=== PATIENT | male | born 2005 | race Caucasian/White ===

== ENCOUNTER 2025-09-04 02:18 | Inpatient (IN) | payer OTHER, SELFPAY ==
[2025-09-04 02:39] VITALS: BP 130/86
[2025-09-04 02:40] VITALS: BMI 30.6
--- NOTE | 2025-09-04 02:50 | PTCARENOTE ---
Received patient as a direct admit @0215. Pt transferred from [facility] with concern for left ankle infection. Pt ambulated to room with boot on left ankle. AAOx3. VSS. No c/o pain. Left ankle noted to have moderate edema with erythema.
Family is at bedside. Plan of care discussed. Call aragon within reach. Care ongoing.
--- NOTE | 2025-09-04 03:10 | HPS.HSE ---
Addendum entered and electronically signed by José Luis Orellana, DO 09/04/25 03:20:
[facility] Data:
WBC = 11.3
ESR = 16
CRP = 78.2
Lactate = 1.4
X-Ray L Ankle: Soft tissue swelling and questionable tibiotalar effusion.
CT Ankle: Post-op Changes. No fluid, effusion, etc.
Strep A: Negative
Blood Cultures x 2 drawn
Original Note:
Family Physician
-
Family Physician: PHYSICIAN PRIVATE
Chief Complaint
-
Fever
History of Present Illness
Patient is a 19y M with PMH significant for asthma / allergies who presents to from [facility] for evaluation of fever. Patient states that he developed fever with intermittent chills, malaise on 09/01. His symptoms have persisted /
progressed prompting him to present to Urgent Care this AM for evaluation. He tested negative for influenza / COVID there and was referred to local ED. At the ED there was concern for possible L ankle infection. Patient had labs, x-rays and CT
scan performed.
Patient reports some discomfort in the L ankle - but no new / worsening pain, etc.
He had surgery here with Dr. Coleman on 07/12 for ORIF / reconstruction of the L ankle. Patient is currently in a walking boot.
There is mild redness at the surgical site on lateral ankle which patient states is not changed.
There is some redness / swelling over the medial malleolus which patient states is new.
Medical History
Past Medical History
Past Medical History: Reports Other
Additional Past Medical History:
Allergic Asthma
Past Surgical History: Reports Other
Additional Past Surgical History:
Left Ankle ORIF / Reconstruction (07/12)
Left Lower Leg Surgery
Appendectomy
Social History
Tobacco: Non-smoker
Alcohol: Occasional
Drug: None
Family History
Family History: Not pertinent
Allergies / Home Medications
Allergies reflects when Allergies were last updated in [employer].
Home Medications with original date entered in [employer]
Allergy/Medication List:
Allergies
Allergy/AdvReac Type Severity Reaction Status Date / Time
No Known Allergies Allergy Verified 09/04/25 02:31
Home Medications
montelukast 10 mg tablet 10 mg PO DAILY 09/04/25
Review of Systems
-
History Source: Patient
A 12 point ROS was completed and negative except as noted: Yes
Constitutional: Reports Fever, Fatigue and Chills
EENT: Denies Sore Throat
Respiratory: Denies Cough or Trouble Breathing
Cardiac: Denies Chest Pain or Palpitations
Abdomen/GI: Denies Abdominal Pain, Nausea, Vomiting or Diarrhea
: Denies Dysuria, Frequency or Flank Pain
Musculoskeletal: Reports Joint Pain; Denies Joint Swelling or Edema
Neurological: Denies Dizzy or Headache
Psych: Denies Depression or Anxiety
Physical Exam
Vital Signs
Vital Signs
Temp Pulse Resp BP Pulse Ox
99.3 F 106 18 130/86 98
09/04/25 02:39 09/04/25 02:39 09/04/25 02:39 09/04/25 02:39 09/04/25 02:39
Physical Exam
General: Other (19y M in no distress.)
HEENT: Moist mucous membranes and PERRLA
Respiratory: Clear; No Wheezes, Rales or Rhonchi
Cardiac: S1/S2 and Regular Rhythm; No Murmur
GI: Soft, Non Tender, Non Distended and Normal Bowel Sounds
Musculoskeletal: No Clubbing, No Cyanosis and Other (L ankle with mild edema. Erythema medial and lateral malleolus, mild localized tenderness. Lateral ankle with incision, healing well - no bleeding / discharge. ROM without significant pain.)
Neuro: AO x 3 and Nonfocal/grossly intact
Impression/Plan
-
A/P: Patient is a 19y M s//p L ankle surgery on 07/12 who presents to from [facility] for evaluation of fever.
Fever
Left Ankle Erythema
s/p ORIF L Ankle 07/12
- Admit for further evaluation and treatment.
- Data from [facility] reviewed (see above).
- CT without significant fluid collection, etc at ankle - post-op changes.
- Received initial doses of daptomycin and cefepime at outside hospital.
- Would hold further abx for now pending joint aspiration / culture-guided therapy.
- Ortho consulted for recommendations.
- Follow fever curve and monitor for any other new / focal symptoms, etc.
- NWB to L foot for now pending Ortho eval.
- COVID / flu reportedly negative at Urgent care. Strep A negative at [facility] ED.
Allergic Asthma
- No acute exacerbation.
- Continue Singulair.
DVT Prophylaxis: Lovenox
Code Status: Full
[2025-09-04] MEDS: LR 1000 IV (03:48)
[2025-09-04] MEDS: FLUSH (NSS) 1 FLUSH IV (03:49)
[2025-09-04 07:00] VITALS: BP 142/79
--- NOTE | 2025-09-04 07:40 | W.PN.UPDATE ---
Update Note
Progress Note Update
Patient seen and evaluated bedside. Chart was reviewed.
Patient 19-year-old male now about 7 weeks status post open reduction term fixation left lateral malleolus fracture with associated syndesmotic repair presented to an outside hospital with redness reported fever chills. Ultimately was transferred
here from outside hospital for further workup.
On clinical exam has some mild erythema and associated warmth over medial lateral malleolus. Minimal tenderness palpation mostly over medial malleolus. Painless active ankle dorsi plantarflexion. No palpable fluctuance or significant reproducible
pain with motion of ankle.
Outside imaging reports of plain film x-rays left ankle as well as CT scan ankle with and without contrast not concerning for any associated with collection. There was questionable tibiotalar fusion noted on 1 report. Persistent fracture lines on
CT scan imaging
19-year-old male 7 weeks status post open reduction term fixation left ankle fracture with cellulitis. Will plan to reach out to IR to see if ultrasound study can be performed to evaluate for associated tibiotalar effusion potentially perform
aspiration. Would like to visualize imaging myself but would have concerns about removal of hardware at this point. I will plan to reach out to infectious disease to discuss possibility of suppressive antibiotics. This was discussed in detail
with the primary team.
Formal consult to follow
[2025-09-04 08:34] LABS: Hematocrit 39.9 % (39.0-52.0); Hemoglobin 13.7 g/dL (13.0-18.0); Mean Corp Hgb Conc. 34.3 g/dL (33.0-37.0); Mean Corpuscular Volume 86.4 fL (80.0-94.0); Platelet Count 249 10^3/uL (130-400); Red Cell Dist. Width 12.7 % (11.5-14.5)
[2025-09-04 08:58] LABS: Blood Urea Nitrogen 11 mg/dl (9-20); Calcium 10.1 mg/dl (8.4-10.2); Carbon Dioxide 26 mmol/L (22-30); Chloride 101 mmol/L (98-107); Estimated Creatinine Clearance > 125 ml/min; Glucose 98 mg/dl (70-99); Potassium 4.4 mmol/L (3.5-5.1); Sodium 137 mmol/L (135-145); eGFR > 60.00
--- NOTE | 2025-09-04 09:28 | W.PN.HOSP.TC ---
Today's Communication/Plan
-
see PN
Assessment / Plan
Assessment / Plan
19yo M with PMHx of mild intermittent asthma, Hx of L ankle Fx s/p ORIF about 7 weeks before admisison transferred to since his surgery doen here) for 2 days of worsening redness on L ankle and fevers. CT from [facility] reviewed by Ortho and no
concerning fluid collection seen but questionable tibiotalar effusion. PAtient had similar episode of redness, treated as cellulitis with Abx few weeks after the surgery
No urinary, respiratory or GI symptoms reported
A/P:
#LE cellulitis vs infectious arthritis (less likely)
patient non-toxic, follow additional studies off Abx pending ID consult
Ortho follows: plan for IRAD guided attempt to aspirate tibiotalar effusion
follow CBC, Bcx
CRP in outside hospital elevated to > 70
#Tachycardia
TSH done in outside hospital WNL
DVT ppx Lovenox
Full code
I have spent at least 51min reviewing chart, test results, communication with consultants, family bedside and providing direct patient care
Anticipated Discharge: > 48 hours
Subjective/Interval History
-
Date of Service: September 04, 2025
Objective Data
-
Labs:
Laboratory Results
09/04/25
08:11
WBC 9.6
Hgb 13.7
Hct 39.9
Plt Count 249
Sodium 137
Potassium 4.4
Chloride 101
Carbon Dioxide 26
BUN 11
Creatinine 0.8
Glucose 98
Calcium 10.1
Vital Signs:
Vital Signs
Temp Pulse Resp BP Pulse Ox
98.9 F 117 12 142/79 100
09/04/25 07:00 09/04/25 07:00 09/04/25 07:00 09/04/25 07:00 09/04/25 07:00
Review of Systems
-
History Source: Patient
All other systems: Reviewed and negative
Physical Exam
-
General: No Apparent Distress
HEENT: Normocephalic
Respiratory: Clear to Auscultation
Cardiac: Regular Rhythm and Tachycardic; Negative Murmur
GI: Soft, Nontender and Nondistended
Skin: Other (medcial and lateral maleolar skin redness on LLE)
Neuro: Awake, Alert, Oriented and AO x 3
Psych: Calm
--- NOTE | 2025-09-04 14:39 | CON.ID ---
Consultation
-
Date/Time Consultation Requested: 09/04/25 8:11
Date/Time Consultation Performed: 09/04/25 14:54
Requesting Provider: Dr Ziegler
Performing Provider: Dr Del Cid
Reason for Consultation: L ankle redenss, fever, Hx of Fx repair
Chief Complaint / Past History
Chief Complaint
redness, swelling of the L ankle
History of Present Illness
Mr Anderson is a 19 year old male with history of L ankle ORIF 07/12/[address] Coleman. He was transfered here from [facility] for fevers, chills, malaise beginning 09/01. He was recently diagnosed with cellulitis of the L ankle at
urgent care and given a 10 day course of doxycycline which finished 08/23. Then 09/01 he relapsed with fevers, chills, increasing swelling and pain. He went to urgent care covid and influenza screening was negative and he was referred to a local
ER - there he was given two doses of daptomycin and had Xray and a CT performed. WBC = 11.3, ESR = 16, CRP = 78.2, Lactate = 1.4 and blood cultures x3 were drawn. On the CT There was no significant collection but questionable tibiotaler effusion
and persistent fracture lines on the CT scan.
Past History
Additional Past Medical History:
asthma
Additional Past Surgical History:
Left Ankle ORIF / Reconstruction (07/12)
Left Lower Leg Surgery
Appendectomy
Allergy History:
No Known Allergies Allergy (Verified 09/04/25 02:31)
Medications Reviewed: Yes
Social History
Tobacco: Non-Smoker
Alcohol: Occasional
Drug: None
Family History
Family History: Not Pertinent
Review of Systems
Review of Systems
Constitutional: Reports Fever, Fatigue and Chills
EENT: Denies Sore Throat
Respiratory: Denies Cough or Trouble Breathing
Cardiac: Denies Chest Pain or Palpitations
Abdomen/GI: Denies Abdominal Pain, Nausea, Vomiting or Diarrhea
: Denies Dysuria, Frequency or Flank Pain
Musculoskeletal: Reports Joint Pain; Denies Joint Swelling or Edema
Neurological: Denies Dizzy or Headache
Psych: Denies Depression or Anxiety
Vital Signs
Temp Pulse Resp BP Pulse Ox
98.9 F 117 12 142/79 100
09/04/25 07:00 09/04/25 07:00 09/04/25 07:00 09/04/25 07:00 09/04/25 07:00
Physical Exam
Physical Exam
Constitutional: No Acute Distress
Cardiovascular: Regular Rate and S1/S2; Negative Murmur or Rub
Pulmonary: Clear and Symmetric; Negative Wheezes, Rales or Rhonchi
Gastrointestinal: Soft, Non Tender, Non Distended and Normal Bowel Sounds
Extremities: Other (swelling of the left ankle generalized, erythema of the medial and lateral malleoli, lateral malleous with well healed surgical site)
Skin: Warm and Dry; Negative Rash or Jaundice
Neurological: Awake
Lab / Diagnostic Study Results
09/04/25 08:11
09/04/25 08:11
Microbiology Results
Micro:
09/04/25 11:59 Blood Culture - Pending
Blood/Venous
09/04/25 08:10 Blood Culture - Pending
Blood/Venous
Assessment / Plan
Suspected Early Hardwear Infection
- blood cultures x2 at [facility] - will follow up periodically
- blood culutres x2 here in progress
- agree with joint aspiration if feasible
- ESR 16, CRP 78
- hold antibiotics pending further cultures
- has had recent daptomycin and doxycycline
[2025-09-04 15:00] VITALS: BP 124/76
--- NOTE | 2025-09-04 16:59 | CON.ORTHO ---
Consultation
-
Date/Time Consultation Performed: 09/04/25 715 AM
Consultation - Orthopedics
History
19-year-old male now about 7 weeks status post open reduction internal fixation left lateral malleolus fracture with symptomatic fixation presented to an outside emergency department complaints of fevers chills increased redness around ankle. He
was subsequently transferred to [place] for further evaluation and treatment. Patient is well-known to me. He is accompanied by his parents this morning. He reports that the last couple of days he experienced some increasing redness
particularly over the medial aspect of his ankle. He initially went to an urgent care and then was directed to his local emergency department. He had elevated inflammatory markers there was concern for tibial talar effusion and he was subsequently
transferred. This morning patient reports some pain at rest is not really worsened with ambulation. He reports that pain is mostly over the medial aspect of the knee and describes this as a feeling of a 'bruise'. Did have some chills at home. He
has been ambulating without too much difficulty in a fracture boot and has been participating physical therapy. Denies any significant recent drainage from the incisions. He previously had an episode of cellulitis that was treated at local urgent
care with oral antibiotics with resolution of symptoms.
Allergies / Home Medications
Past medical history: Pneumonia/sinusitis
Past surgical history: Open reduction term fixation left lateral malleolus fracture with syndesmotic fixation about 7 weeks ago
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
Family history: Not pertinent
Allergy/AdvReac Type Severity Reaction Status Date / Time
No Known Allergies Allergy Verified 09/04/25 02:31
�Medication �Instructions �Recorded
montelukast 10 mg tablet 10 mg PO DAILY 09/04/25
Vital Signs / Lab Results
Temp Pulse Resp BP Pulse Ox
99.1 F 118 12 124/76 99
09/04/25 15:00 09/04/25 15:00 09/04/25 15:00 09/04/25 15:00 09/04/25 15:00
09/04/25 08:11
09/04/25 08:11
10 point review systems reviewed and negative unless otherwise stated
General: Pleasant, no acute distress
Musculoskeletal left lower extremity
Well-healed surgical incision laterally. There is some very mild erythema noted both medial as well as lateral and area of surgical incision
There is no palpable fluctuance, there is no expressible drainage or purulence
There is really no tenderness palpation of the lateral malleolus
There is mild tenderness palpation of the area medial malleolus
There is relatively painless active ankle dorsiflexion and plantarflexion
There is very mild warmth about the ankle
Sensations intact to light touch in all distributions distally
Positive EHL, FHL, ankle dorsiflexion, plantarflexion
Brisk cap refill
Diagnostic studies
CT scan recent x-rays outside hospital reviewed. There is evidence of persistent fracture lines incomplete healing lateral malleolus. There is no obvious effusion on CT scan although there is report from his x-ray of concern for tibiotalar fusion.
CT scan does not reveal any obvious soft tissue abscesses or fluid collections
Assessment / Plan
19-year-old male several days worsening erythema pain particularly medial ankle in the setting of previous open reduction term fixation left lateral malleolus fracture syndesmotic fixation about 7 weeks ago with documented fever at outside hospital.
I had a very long detailed discussion with the patient as well as his family at bedside regarding diagnosis and treatment options. We discussed diagnoses to include cellulitis as well as infected hardware. I explained to them that given the
persistence of fracture lines on CT scan, I would be hesitant to remove hardware only 7 weeks out from his index procedure. They stated their understanding to this. We discussed the possibility of irrigation and debridement with retention of
hardware during this hospitalization as well although in the absence of obvious fluid collections or drainage from the incisions, I am not sure that we would proceed with this if we could potentially treat this with suppressive antibiotics.
Clinically I do not have a high degree of suspicion for a septic joint however they did have discussion with outside providers regarding the possibility of this given the read at the outside hospital of possible tibiotalar effusion. I did discuss
this with interventional radiology today and they are going to plan to perform an ultrasound of the ankle tomorrow to assess for potential tibiotalar effusion. Certainly if there is evidence of effusion or soft tissue fluid collection on
ultrasound, would recommend obtaining fluid for synovial fluid analysis to include cultures Gram stain synovial white blood cell count crystals. Did ask that infectious disease comment regarding potential treatment options particularly suppressive
antibiotics should we decide to treat this without initial hardware removal. Explained to him that ideally would wait about 3 months postop for hardware removal hopefully at that point there be sufficient healing to remove the hardware. Going to
plan to hold off on any antibiotics in case there is fluid tomorrow and the ultrasound amenable to synovial fluid analysis. From my standpoint patient can certainly bear weight to his tolerance for the time being. Please reach out questions or
concerns
Weightbearing as tolerated right lower extremity in cam boot/assistive devices
Pain control
Medical management per primary team
Hold off on antibiotics for time being per infectious disease follow-up [facility] ultrasound of ankle tomorrow
Please reach out questions or concerns
[2025-09-04] MEDS: LOVENOX 40 MG SC (17:14)
[2025-09-04] MEDS: MOTRIN 600 MG PO (18:13)
[2025-09-04 23:06] VITALS: BP 144/90
[2025-09-05 07:43] VITALS: BP 126/70
--- NOTE | 2025-09-05 09:25 | CM ---
Addendum entered by Ann Marie Mckeon 09/05/25 09:51:
PT recommended outpatient therapy
Original Note:
Met with patient and his mother at bedside
Pharmacy Verified: [facility] @ [address], [place]
Family Physician: Steffi Theodore PA-C; [address] [place] [address];
Lives with parents, bilevel home; half bath 1st level; has access to walk-in shower on 2nd floor
PLOF: recently graduated from college; wearing walking boot LLE; independent with ADLs; driving; has crutches if needed
Mother will transport home
Plan: Discharge to home; no needs anticipated
--- NOTE | 2025-09-05 11:20 | W.PN.ID1 ---
Date of Service
Date of Service: September 05, 2025
Today's Communication
hold antibiotics
pending IR aspiration
Assessment / Plan
Suspected Early Hardwear Infection
- blood cultures x2 at [facility] - will follow up periodically
- blood culutres x2 here in progress
- agree with joint aspiration if feasible
- ESR 16, CRP 78
- requested records [facility] cultures
- hold antibiotics pending further cultures
- has had recent daptomycin and doxycycline
Chief Complaint
-: Other (suspected hardwear infection of the ankle)
Subjective / Review of Systems
no further fevers
bp stable
pending IR procedure
Vital Signs / Physical Exam
Vital Signs
Vital Signs
Temp Pulse Resp BP Pulse Ox
97.9 F 91 16 126/70 99
09/05/25 07:43 09/05/25 07:43 09/05/25 07:43 09/05/25 07:43 09/05/25 07:43
Physical Exam
Constitutional: No Acute Distress
Cardiovascular: Regular Rate and S1/S2; Negative Murmur or Rub
Pulmonary: Clear and Symmetric; Negative Wheezes or Rales
Gastrointestinal: Soft, Non Tender, Non Distended and Normal Bowel Sounds
Extremities: Other (redness of the medial and lateral epicondyles, no dehiscence )
Skin: Warm and Dry; Negative Rash or Jaundice
Objective Data
Lab Data
Lab Results
09/04/25 08:11
09/04/25 08:11
Estimated Creat Clear > 125 ml/min 09/04/25 08:11
Most recent labs reviewed.
Micro Results:
09/04/25 08:10 Blood Culture - Preliminary
Blood/Venous No Growth in 24 hours- Final report to follow
09/04/25 11:59 Blood Culture - Pending
Blood/Venous
--- NOTE | 2025-09-05 12:41 | W.PN.HOSP.TC ---
Today's Communication/Plan
-
Await results of ultrasound and possible IR joint aspiration
Assessment / Plan
Assessment / Plan
19M with left ankle ORIF 7 weeks ago p/w fever, also noted to have swelling/erythema of left ankle.
LLE cellulitis
Ankle ultrasound pending
Ortho consulted, less likely to have infection of the joint
IR consulted for possible aspiration of joint fluid for culture
ID consulted
Monitoring off antibiotics until fluid collected. BCx are NGTD. WBC on admission was WNL.
Pain control
Tachycardia�improving
HR 118 on admit, currently 91. Suspect due to infection. Per notes OSH TSH was WNL.
DVT PPx
Lovenox�hold for possible joint aspiration
Anticipated Discharge: 24 - 48 hours
Subjective/Interval History
-
Date of Service: September 05, 2025
Patient states he feels well, denies pain. His mother is at bedside. Reviewed plan of care. All questions answered as able.
Objective Data
-
Vital Signs:
Vital Signs
Temp Pulse Resp BP Pulse Ox
97.9 F 91 16 126/70 99
09/05/25 07:43 09/05/25 07:43 09/05/25 07:43 09/05/25 07:43 09/05/25 07:43
I&O
09/04/25 09/05/25 09/06/25
06:59 06:59 06:59
Intake Total 1819
Balance 1819
Review of Systems
-
History Source: Patient
All other systems: Reviewed and negative
Physical Exam
-
General: No Apparent Distress
HEENT: Moist Mucous Membranes, Anicteric and PERRLA
Respiratory: Clear to Auscultation; Negative Wheezes, Rales or Rhonchi
Cardiac: Regular Rhythm and S1/S2; Negative Murmur, Rub or Gallop
GI: Soft, Nontender, Nondistended and Normal Bowel Sounds
Musculoskeletal: No Edema and Edema, Left Lower Extrem (Erythema, warmth)
Skin: Warm, Dry and Other (Surgical incision site is clean, dry, no purulence expressed); Negative Rash, Ulcers or Lesions
Neuro: Awake and AO x 3
Hematologic / Lymphatic: No Lymphadenopathy
Psych: Calm
Data Reviewed
-
Labs: Labs Reviewed by me, Discussed with Patient and Discussed with Family
[2025-09-05 15:32] VITALS: BP 137/87
[2025-09-05 16:46] VITALS: BP 143/95
--- NOTE | 2025-09-05 20:14 | W.PN.ORTHO ---
Today's Communication / Plan
-
19-year-old male now 7 weeks status post open duction term fixation lateral malleolus fracture left ankle with symptomatic fixation cellulitis concern for deep hardware infection/potential septic joint
Weightbearing as tolerated left lower extremity
Ultrasound did not reveal any joint effusion. I think this essentially rules out concern for septic joint. Also did not appear to have any evidence of deep fluid collection that was identified on ultrasound. I think this is reassuring
particularly since no deep fluid collection was identified on CT scan with and without contrast
Pain control
Medical management per primary team
Holding antibiotics for the time being. Will have discussion with infectious disease team regarding definitive antibiotic management
Please reach out questions or concerns
Subjective
.
.:
Patient reports pain is very well-controlled. Has not not had any fevers. Has not not taken any Tylenol. Has been able to ambulate without too much difficulty.
Vital Signs and Labs
.
Vital Signs and Labs:
Lab Results
09/04/25 08:11
09/04/25 08:11
Temp Pulse Resp BP Pulse Ox
98.6 F 104 17 143/95 98
09/05/25 15:32 09/05/25 16:46 09/05/25 15:32 09/05/25 16:46 09/05/25 15:32
Physical Exam
-
Musculoskeletal left lower extremity
Mild erythema medial lateral ankle
Minimal tenderness palpation medial malleolus
Fairly painless active ankle dorsiflexion plantarflexion
[2025-09-05 23:06] VITALS: BP 125/72
[2025-09-06 07:05] VITALS: BP 121/79
[2025-09-06 07:23] LABS: Hematocrit 37.7 % (39.0-52.0); Hemoglobin 13.0 g/dL (13.0-18.0); Mean Corp Hgb Conc. 34.5 g/dL (33.0-37.0); Mean Corpuscular Volume 85.9 fL (80.0-94.0); Nucleated Red Blood Cells % 0 % (-); Platelet Count 264 10^3/uL (130-400); Red Cell Dist. Width 12.5 % (11.5-14.5)
[2025-09-06 07:59] LABS: Blood Urea Nitrogen 11 mg/dl (9-20); Calcium 9.7 mg/dl (8.4-10.2); Carbon Dioxide 28 mmol/L (22-30); Chloride 104 mmol/L (98-107); Estimated Creatinine Clearance > 125 ml/min; Glucose 92 mg/dl (70-99); Potassium 4.7 mmol/L (3.5-5.1); Sodium 139 mmol/L (135-145); eGFR > 60.00
[2025-09-06 08:20] LABS: C-Reactive Protein 37.40 mg/L (0.0-10.00)
--- NOTE | 2025-09-06 10:08 | W.PN.ID1 ---
Date of Service
Date of Service: September 06, 2025
Today's Communication
- start 6 week course of daptomycin, then 6 weeks of doxycycline
- weekly cbc, cmp, esr, crp while on IV antibiotics
- follow up with me in about 4 weeks - sooner if any problems
Assessment / Plan
Suspected Early Hardwear Infection
- called [facility] [phone] - spoke with Allegra, blood cultures x2 done she will fax the results to my office [phone]
- blood cultures x2 here in progress NGTD
- joint aspiration not feasible per IR
- ESR 16, CRP 78
- start 6 week course of daptomycin, then 6 weeks of doxycycline
- weekly cbc, cmp, esr, crp while on IV antibiotics
- follow up with me in about 4 weeks - sooner if any problems
Chief Complaint
-: Other (suspected hardwear infection of the ankle)
Subjective / Review of Systems
afebrile
bp stable
called [facility] [phone] - spoke with Allegra, blood cultures x2 done she will fax the results to my office [phone]
Vital Signs / Physical Exam
Vital Signs
Vital Signs
Temp Pulse Resp BP Pulse Ox
98.5 F 83 16 121/79 97
09/06/25 07:05 09/06/25 07:05 09/06/25 07:05 09/06/25 07:05 09/06/25 07:05
Physical Exam
Constitutional: No Acute Distress
Cardiovascular: Regular Rate and S1/S2; Negative Murmur or Rub
Pulmonary: Clear and Symmetric; Negative Wheezes or Rales
Gastrointestinal: Soft, Non Tender, Non Distended and Normal Bowel Sounds
Skin: Warm and Dry; Negative Rash or Jaundice
Wound: Other (erythema, warmth, swelling around surgical site of the L ankle)
Objective Data
Lab Data
Lab Results
09/06/25 06:21
09/06/25 06:20
ESR 23 mm/hour (0-20) H 09/06/25 06:21
Estimated Creat Clear > 125 ml/min 09/06/25 06:20
C-Reactive Protein 37.40 mg/L (0.0-10.00) H 09/06/25 06:20
Most recent labs reviewed.
Micro Results:
09/04/25 08:10 Blood Culture - Preliminary
Blood/Venous No Growth in 48 hours- Final report to follow
09/04/25 11:59 Blood Culture - Preliminary
Blood/Venous No Growth in 24 hours- Final report to follow
--- NOTE | 2025-09-06 11:22 | PTOTSP ---
Chart reviewed, spoke with nurse and patient. The patient is now WBAT and reports he has been ambulating independently, offering no concerns regarding his mobility or performing stairs. Patient anticipates Outpatient PT follow up when cleared by
Orthopedics. No acute PT needs at this time, will sign off. The patient is aware we are available if any questions/concerns come up.
--- NOTE | 2025-09-06 13:17 | CM ---
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
teaching needs to be completed per [facility] they can be out early tomorrow.
Plan; Waiting on PICC line placement and waiting on confirmation on patient's infusion benefit and any copays for home infusion.
[2025-09-06] MEDS: XANAX 0.5 MG PO (13:21)
--- NOTE | 2025-09-06 14:19 | W.PN.HOSP.TC ---
Today's Communication/Plan
-
IV antibiotics/PICC/arrangements for outpatient
Assessment / Plan
Assessment / Plan
19M with left ankle ORIF 7 weeks ago p/w fever, also noted to have swelling/erythema of left ankle.
LLE cellulitis
Ankle ultrasound without any abscess or effusion
Ortho consulted, less likely to have infection of the joint
IR consulted for possible aspiration however not performed given no effusion on US.
ID consulted, empirically treating with IV daptomycin. PICC ordered. Will need either home infusion or outpatient infusion center, CM consult
Monitoring off antibiotics until fluid collected. BCx are NGTD. WBC is WNL.
Pain control
Tachycardia�improving
HR 118 on admit, currently 83. Suspect due to infection. Per notes OSH TSH was WNL.
DVT PPx
Lovenox
Anticipated Discharge: 24 - 48 hours
Subjective/Interval History
-
Date of Service: September 06, 2025
Patient feels well, denies any issues. Mother at bedside. They ask about the antibiotics, noting that ID had mentioned that he would likely be on IV.
Objective Data
-
Labs:
Laboratory Results
09/06/25 09/06/25
06:20 06:21
WBC 8.3
Hgb 13.0
Hct 37.7 L
Plt Count 264
Sodium 139
Potassium 4.7
Chloride 104
Carbon Dioxide 28
BUN 11
Creatinine 0.8
Glucose 92
Calcium 9.7
Vital Signs:
Vital Signs
Temp Pulse Resp BP Pulse Ox
98.5 F 83 16 121/79 97
09/06/25 07:05 09/06/25 07:05 09/06/25 07:05 09/06/25 07:05 09/06/25 07:05
I&O
09/05/25 09/06/25 09/07/25
06:59 06:59 06:59
Intake Total 1819 1320 / 1320 480 / 480
Balance 1819 1320 / 1320 480 / 480
Review of Systems
-
History Source: Patient
All other systems: Reviewed and negative
Physical Exam
-
General: No Apparent Distress
HEENT: Moist Mucous Membranes, Anicteric and PERRLA
Respiratory: Clear to Auscultation; Negative Wheezes, Rales or Rhonchi
Cardiac: Regular Rhythm and S1/S2; Negative Murmur, Rub or Gallop
GI: Soft, Nontender, Nondistended and Normal Bowel Sounds
Musculoskeletal: No Edema and Edema, Left Lower Extrem (Erythema, warmth)
Skin: Warm, Dry and Other (Surgical incision site is clean, dry, no purulence expressed); Negative Rash, Ulcers or Lesions
Neuro: Awake and AO x 3
Hematologic / Lymphatic: No Lymphadenopathy
Psych: Calm
Data Reviewed
-
Labs: Labs Reviewed by me, Discussed with Patient and Discussed with Family
[2025-09-06 15:05] VITALS: BP 120/58
[2025-09-06] MEDS: CUBICIN 16 MG IV (16:09)
[2025-09-06] MEDS: LOVENOX 40 MG SC (18:23)
--- NOTE | 2025-09-06 18:36 | W.PN.UPDATE ---
Update Note
Progress Note Update
Did see patient this afternoon. Discussed antibiotic plan with patient and his mother. Also discussed this with infectious disease team.
19-year-old male presumed left ankle hardware infection. Going to plan for PICC line and 6 weeks of IV antibiotics
Weightbearing as tolerated left lower extremity in cam boot
Pain control
IV antibiotics/PICC line per infectious disease recommendations
Plan to follow-up outpatient with myself at previously scheduled appointment in about 3 weeks repeat clinical assessment.
We did discuss the possibility of hardware removal but this would likely happen in about 3 months postop pending healing of fracture
Okay for discharge from orthopedic standpoint
[2025-09-06 23:03] VITALS: BP 153/80
[2025-09-07 06:04] LABS: Blood Urea Nitrogen 13 mg/dl (9-20); Calcium 9.7 mg/dl (8.4-10.2); Carbon Dioxide 25 mmol/L (22-30); Chloride 104 mmol/L (98-107); Estimated Creatinine Clearance > 125 ml/min; Glucose 98 mg/dl (70-99); Potassium 4.4 mmol/L (3.5-5.1); Sodium 137 mmol/L (135-145); eGFR > 60.00
[2025-09-07 06:08] LABS: Hematocrit 38.7 % (39.0-52.0); Hemoglobin 13.6 g/dL (13.0-18.0); Mean Corp Hgb Conc. 35.1 g/dL (33.0-37.0); Mean Corpuscular Volume 85.1 fL (80.0-94.0); Nucleated Red Blood Cells % 0 % (-); Platelet Count 271 10^3/uL (130-400); Red Cell Dist. Width 12.2 % (11.5-14.5)
[2025-09-07 07:40] VITALS: BP 128/79
--- NOTE | 2025-09-07 07:52 | CM ---
Chart reviewed PICC line information faxed over to [facility], Markie from [facility] will be at the hospital today to see patient between 9:30am-10am to do a teach. Plan home today with home IV ABX. Waiting on update on any copays for
home IV ABX.
Plan; Home today with home IV ABX.
[2025-09-07 13:00] VITALS: BP 130/70
[2025-09-07] MEDS: CUBICIN 16 MG IV (13:05)
--- NOTE | 2025-09-07 15:28 | W.PN.ID1 ---
Date of Service
Date of Service: September 07, 2025
Today's Communication
- start 6 week course of daptomycin through 10/17, then 6 weeks of doxycycline
- weekly cbc, cmp, esr, crp while on IV antibiotics
- follow up with me in about 4 weeks - sooner if any problems
Assessment / Plan
Suspected Early Hardwear Infection
- called [facility] [phone] - spoke with Allegra, blood cultures x2 done she will fax the results to my office [phone]
- blood cultures x2 here in progress NGTD
- joint aspiration not feasible per IR
- ESR 16, CRP 78
- start 6 week course of daptomycin through 10/17, then 6 weeks of doxycycline
- weekly cbc, cmp, esr, crp while on IV antibiotics
- follow up with me in about 4 weeks - sooner if any problems
Chief Complaint
-: Other (suspected hardwear infection of the ankle)
Subjective / Review of Systems
afebrile
bp stable
tolerating current therapies
Vital Signs / Physical Exam
Vital Signs
Vital Signs
Temp Pulse Resp BP Pulse Ox
98.3 F 94 16 130/70 97
09/07/25 13:00 09/07/25 13:00 09/07/25 13:00 09/07/25 13:00 09/07/25 13:00
Physical Exam
Constitutional: No Acute Distress
Cardiovascular: Regular Rate and S1/S2; Negative Murmur or Rub
Pulmonary: Clear and Symmetric; Negative Wheezes or Rales
Gastrointestinal: Soft, Non Tender, Non Distended and Normal Bowel Sounds
Skin: Warm and Dry; Negative Rash or Jaundice
Wound: Other (medial and lateral surgical sites remain pink, warm, mildly tender)
Objective Data
Lab Data
Lab Results
09/07/25 05:24
09/07/25 05:24
ESR 23 mm/hour (0-20) H 09/06/25 06:21
Estimated Creat Clear > 125 ml/min 09/07/25 05:24
C-Reactive Protein 37.40 mg/L (0.0-10.00) H 09/06/25 06:20
Most recent labs reviewed.
Micro Results:
09/04/25 11:59 Blood Culture - Preliminary
Blood/Venous No Growth in 72 hours- Final report to follow
09/04/25 08:10 Blood Culture - Preliminary
Blood/Venous No Growth in 72 hours- Final report to follow
--- NOTE | 2025-09-07 19:04 | W.DCSUMMARY ---
Discharge Summary
Discharge Data
Date of Admission: 09/04/25
Date of Discharge: 09/07/25
Total time spent discharging patient (in min): 31
Discharge Plan
-
Patient Disposition: Home with Home Care
Discharge Diagnosis/Procedures: L ankle joint hardware infection
Diet: Regular
Activity: As tolerated
Additional Activity: Weightbearing as tolerated left lower extremity in cam boot
Other Services: VN
Referrals:
PRIVATE,PHYSICIAN [Family Provider, Internal Medicine]
Omid Coleman MD [Active, Orthopedics]
Natalie Del Cid MD [Active, Infectious Diseases]
Prescriptions:
New
DAPTOmycin [Cubicin] 800 MG
Syringe [Syringe-Pump] 0 ML
As Directed mls/hr IV Q24H
Ordered By: Reta Perdomo MD
Last Taken: 09/07/25 13:05 16 mls
Continued
montelukast 10 mg tablet
10 mg PO DAILY
Discharge Orders:
Discharge Patient (As Directed); Ordered 09/07/25
Ordered By: Reta Perdomo
Discharge Date and Time
Discharge Date/Time: 09/07/25 13:44
Print Language: [facility]
== END 2025-09-07 13:44 | disposition home health service (06) | DRG 560 ==
LOC: 2 SOUTH 02:18
PROVIDERS: Hospitalist; ADMITTING PHYSICIAN Hospitalist; ATTENDING PHYSICIAN Internal Medicine; CONSULT PHYSICIAN Orthopaedic Surgery; CONSULT PHYSICIAN Student in an Organized Health Care Education/Training Program
DX: T84.69XA Infection and inflammatory reaction due to internal fixation device of other site, initial encounter (principal); L03.116 Cellulitis of left lower limb; Y84.8 Other medical procedures as the cause of abnormal reaction of the patient, or of later complication, without mention of misadventure at the time of the procedure
CPT/HCPCS: 71045; 76882; 80048; 85025; 85027; 85652; 86140; 87040; 97161; J0878